=== PATIENT | female | born 1990 | race Caucasian/White ===

== ENCOUNTER 2022-10-13 15:52 | Emergency (ER) | payer OTHER, SELFPAY ==
--- NOTE | 2022-10-13 15:57 | ED.HA ---
HPI - Headache General Chief Complaint: Neck Pain/Injury Stated Complaint: head pain radiating down to neck Time Seen by Provider: 10/13/22 15:56 Source: patient Mode of arrival: ambulatory Limitations: no limitations History of Present Illness HPI Narrative: Yanely is a 32-year-old female patient presenting to clinic today with complaints of left lateral neck pain times 3-4 days. She denies any known injury however she woke up and her she was having pain-pain radiates into the shoulder at times. States the pain is sharp and stabbing and is worse with turning her head to the left. Rates the pain currently 8 out 10. She last took Motrin at 7 or 8:00 a.m. this morning. Patient also reports that she has had a sore throat for the last 1-2 days. She denies any fever or chills Related Data Home Medications Medication Instructions Recorded Confirmed cetirizine 10 mg capsule (Zyrtec) 10 mg PO DAILY 10/13/22 10/13/22 drospirenone 3 mg-ethinyl 1 tablet PO DAILY 10/13/22 10/13/22 estradiol 0.02 mg tablet fluticasone furoate 200 1 inh inhalation DAILY 10/13/22 10/13/22 mcg/actuation blister powder for inhalation (Arnuity Ellipta) fluticasone propionate 50 1 spray intranasal DAILY 10/13/22 10/13/22 mcg/actuation nasal spray,suspension Allergies Allergy/AdvReac Type Severity Reaction Status Date / Time No Known Allergies Allergy Verified 10/13/22 16:14 Review of Systems Review of Systems: Pertinent positives per HPI. Patient denies any fever, chills, rash, headache, visual changes, dizziness, cough, runny nose, shortness of breath, chest pain, palpitations, nausea, vomiting, diarrhea, constipation, abdominal pain, or any urinary issues. PMFSH Comments At the time of my signature, I reviewed and agree with the nursing past medical, surgical, social, and family history. There is no relevant family history pertinent to the patient complaint. Exam Narrative: General: Well-developed, well nourished, in no apparent distress Head: Normocephalic, atraumatic Eyes: Pupils equally round and reactive to light bilaterally, EOM intact, sclera and conjunctive clear, no discharge, lids normal Ears: TMs intact and clear, ear canals clear, no drainage, grossly hearing normal. Nose: Nares patent, no discharge, no inflammation, no sinus tenderness. Mouth: Oropharynx without lesions or masses, good dentition, MMM. Neck: Supple, trachea midline, no enlargement of anterior or posterior cervical nodes, no thyroid masses or goiter palpable. Tenderness to palpation over the left posterior lateral muscular strain, pain with turning her head to the left against resistance, some discomfort with hyperextension of the neck and flexion of the neck Cardio: Regular rate and rhythm, s1 and s2 normal, no murmur appreciated. Resp: Clear to auscultation bilaterally anteriorly and posteriorly, no rhonchi, rales, wheezing or rubs Course Course Emergency Course: Portions of this record may have been created with voice recognition software. Level of Care: Express Care Visit Vital Signs Vital signs: Vital Signs Temperature 36.2 C L 10/13/22 16:07 Pulse Rate 100 10/13/22 16:07 Respiratory Rate 18 10/13/22 16:07 Blood Pressure 134/79 10/13/22 16:07 Pulse Oximetry 100 10/13/22 16:07 Oxygen Delivery Room Air 10/13/22 16:07 Temperature 36.2 C L 10/13/22 16:07 Pulse Rate 100 10/13/22 16:07 Respiratory Rate 18 10/13/22 16:07 Blood Pressure 134/79 10/13/22 16:07 Pulse Oximetry 100 10/13/22 16:07 Oxygen Delivery Room Air 10/13/22 16:07 Vital signs reviewed MDM - Headache MDM Narrative Medical decision making narrative: At the time of visit patient is resting comfortably on exam table. I suspect the patient has a cervical strain of the posterior lateral musculature. Toradol 60 mg IM given in the clinic today for pain. Patient also reporting a sore throat so a strep screen was obtained. Will send
[2022-10-13 16:07] VITALS: BP 134/79; PULSE 100; RESP 18; TEMP 36.2; O2SAT 100
[2022-10-13] MEDS: KETOROLAC (*BKC) 60 MG/2 ML VIAL IM (16:20)
[2022-10-13 16:52] VITALS: BP 139/92; PULSE 91; RESP 18; TEMP 36.3; O2SAT 100
== END 2022-10-13 16:30 | disposition home or self-care (01) ==
PROVIDERS: Emergency Provider Nurse Practitioner Family
DX: S16.1XXA Strain of muscle, fascia and tendon at neck level, initial encounter (principal); X58.XXXA Exposure to other specified factors, initial encounter; J02.9 Acute pharyngitis, unspecified; J45.909 Unspecified asthma, uncomplicated
CPT/HCPCS: 87081; 87880; 96372; 99213; G0463; J1885

== ENCOUNTER 2022-10-15 08:13 | Emergency (ER) | payer OTHER, SELFPAY ==
[2022-10-15 08:28] VITALS: BP 121/82; PULSE 76; RESP 18; TEMP 36.4; O2SAT 98
--- NOTE | 2022-10-15 08:31 | ED.EYEPROB ---
HPI - Eye Problem General Chief complaint: Eye Problems Stated complaint: bilateral eye irritation Time Seen by Provider: 10/15/22 08:31 Source: patient Mode of arrival: ambulatory Limitations: no limitations History of Present Illness HPI Narrative: 32-year-old female presented for complaint of right eye crusted shut this morning. She also reports left eye with mild drainage. She states she feels that both eyes feel itchy and irritated, red and draining. Denies sick contacts. She has not applied anything to the eyes. She does not wear contacts. She has not been wearing makeup. Denies photophobia, vision changes, headache, nausea, vomiting, fevers or chills. chief complaint: eye pain Related Data Home Medications Medication Instructions Recorded Confirmed drospirenone 3 mg-ethinyl 1 tablet PO DAILY 10/13/22 10/15/22 estradiol 0.02 mg tablet fluticasone furoate 200 1 inh inhalation DAILY 10/13/22 10/15/22 mcg/actuation blister powder for inhalation (Arnuity Ellipta) fluticasone propionate 50 1 spray intranasal DAILY 10/13/22 10/15/22 mcg/actuation nasal spray,suspension Allergies Allergy/AdvReac Type Severity Reaction Status Date / Time No Known Allergies Allergy Verified 10/15/22 08:21 Review of Systems Review of Systems: CONSTITUTIONAL: Denies body aches, fever, chills EYES:per HPI ENT: Denies rhinorrhea, congestion, sore throat, or otalgia. CARDIOVASCULAR: Denies chest pain, palpitations RESPIRATORY: Denies cough or dyspnea. GASTROINTESTINAL: Denies abdominal pain, nausea, vomiting, or diarrhea. SKIN: Denies rash, itching, or wounds. MUSCULOSKELETAL: Denies back pain, joint pain, or myalgia. NEUROLOGIC: Denies headache, numbness, tingling, or weakness. All systems reviewed & are unremarkable except as noted in HPI and below PMFSH Comments At time of signature, I have reviewed and agree with nursing past medical, surgical, social and family history unless otherwise noted. Please see nursing chart for further information. There is no relevant family history pertinent to the presenting complaint Exam Narrative: GENERAL: Well-appearing HEAD: Normocephalic, atraumatic. EYES: Bilateral conjunctival injection, right > left, mild yellow drainage and crust noted to lashes; No eye lid swelling, PERRLA, EOMI. Lid eversion showed no FB. ENT: Mucous membranes pink and moist. No rhinorrhea. TMs normal bilaterally. Throat normal. Uvula midline. CHEST: Clear to auscultation. HEART: Regular rate and rhythm. ABDOMEN: Soft, nontender, nondistended SKIN: Warm, dry, no rash. Normal skin turgor. NEURO: No focal deficits. Alert and oriented x3 PSYCH: Normal affect. Course Course Emergency Course: Patient is aware of diagnosis, understands and agrees to treatment plan. Anticipatory guidance given. Patient agrees to follow-up as directed and is aware of reasons to seek care at the emergency department. Portions of this record may have been created with voice recognition software Level of Care: Express Care Visit Vital Signs Vital signs: Vital Signs Temperature 97.5 F L 10/15/22 08:28 Pulse Rate 76 10/15/22 08:28 Respiratory Rate 18 10/15/22 08:28 Blood Pressure 121/82 10/15/22 08:28 Pulse Oximetry 98 10/15/22 08:28 Oxygen Delivery Room Air 10/15/22 08:28 Temperature 97.5 F L 10/15/22 08:28 Pulse Rate 76 10/15/22 08:28 Respiratory Rate 18 10/15/22 08:28 Blood Pressure 121/82 10/15/22 08:28 Pulse Oximetry 98 10/15/22 08:28 Oxygen Delivery Room Air 10/15/22 08:28 MDM - Eye Problem MDM Narrative Medical decision making narrative: PE consistent with bacterial conjunctivitis. Advised supportive measures and signs/symptoms to go to the ER. Pt is appropriate for outpt treatment and f/u. Differential Diagnosis Differential diagnosis: Likely corneal abrasion, conjunctivitis, acute iritis and other Discharge Plan Discharge Clinical Im
== END 2022-10-15 08:40 | disposition home or self-care (01) ==
PROVIDERS: Emergency Provider Nurse Practitioner Family
DX: H10.9 Unspecified conjunctivitis (principal)
CPT/HCPCS: 99213; G0463

== ENCOUNTER 2024-08-11 08:06 | Emergency (ER) | payer OTHER, SELFPAY ==
--- NOTE | 2024-08-11 08:19 | ED_ITS ---
HPI - URI/Sore Throat General Chief Complaint: Upper Respiratory Infection Stated Complaint: RT PINK EYE / Sore throat Time Seen by Provider: 08/11/24 08:26 History of Present Illness HPI Narrative: 34-year-old female presented for complaint of sore throat, nasal congestion and fever of 99. for 3 days. Woke this morning with right eye crusted shut, endorses itching and burning. Denies vision changes, photophobia, headache, cough, nausea vomiting, diarrhea or lethargy. Related Data Home Medications ?Medication ?Instructions ?Recorded ?Confirmed ?Last Taken ?Type drospirenone 3 mg-ethinyl 1 tablet PO DAILY 10/13/22 10/15/22 Unknown History estradiol 0.02 mg tablet fluticasone furoate 200 1 inh inhalation DAILY 10/13/22 10/15/22 Unknown History mcg/actuation blister powder for inhalation (Arnuity Ellipta) fluticasone propionate 50 1 spray intranasal DAILY 10/13/22 10/15/22 Unknown History mcg/actuation nasal spray,suspension dextroamphetamine-amphetamine ER PO 08/11/24 Unknown History 20 mg 24hr capsule,extend release hydroxyzine HCl 25 mg tablet mg 08/11/24 Unknown History sertraline 25 mg tablet mg 08/11/24 Unknown History Allergies Allergy/AdvReac Type Severity Reaction Status Date / Time No Known Allergies Allergy Verified 08/11/24 08:10 Review of Systems Review of Systems: ROS per HPI Exam Narrative: GENERAL: well-appearing, no acute distress. EYES: Right conjunctival injection purulent drainage. PERRLA, EOM. no FB ENT: Mucous membranes moist. TMs pearly bhatia with normal light reflex bilaterally; no tragal tenderness. Oropharynx erythematous without lesions. Tonsils not enlarged and without exudate. No drooling, no hoarseness, no trismus, uvula midline. No tripod positioning, hot potato voice, or soft palate swelling. NECK: Supple. No lymphadenopathy CHEST: Clear to auscultation, breath sounds equal. No respiratory distress, speaks in full sentences. HEART: Regular rate and rhythm. No murmur heard. SKIN: Warm, dry, no rash. NEURO: Alert and oriented x3. Course Course Emergency Course: Patient is aware of diagnosis, understands and agrees to treatment plan. Anticipatory guidance given. Patient agrees to follow-up as directed and is aware of reasons to seek care at the emergency department. Portions of this record may have been created with voice recognition software Level of Care: Express Care Visit Vital Signs Vital signs: Vital Signs Temperature 97.3 F L 08/11/24 08:20 Pulse Rate 72 08/11/24 08:20 Respiratory Rate 16 08/11/24 08:20 Blood Pressure 124/82 08/11/24 08:20 Pulse Oximetry 100 08/11/24 08:20 Oxygen Delivery Room Air 08/11/24 08:20 Temperature 97.3 F L 08/11/24 08:20 Pulse Rate 72 08/11/24 08:20 Respiratory Rate 16 08/11/24 08:20 Blood Pressure 124/82 08/11/24 08:20 Pulse Oximetry 100 08/11/24 08:20 Oxygen Delivery Room Air 08/11/24 08:20 MDM - URI/Sore Throat MDM Narrative Medical decision making narrative: neg strep result reviewed with pt. Treatment for conjunctivitis reviewed with pt. Advise supportive treatments. Patient is appropriate for outpatient treatment and follow-up. Differential Diagnosis Differential diagnosis: Likely upper respiratory infection, viral infection and pharyngitis Lab Data Labs: Lab Results 08/11/24 Range/Units 08:26 POC Grp A Strep Screen Negative (Negative) Discharge Plan Discharge Clinical Impression: Conjunctivitis, Upper respiratory infection Patient Disposition: Home, Self-Care Condition: Stable Instructions: Antibiotic Form, Upper Respiratory Infection (ED), Conjunctivitis (ED) Additional Instructions: eye: Avoid touching or rubbing your eye. Use over the counter lubricating eye drops as needed for irritation Use a warm or cool washcloth on your eye for comfort Use eyedrops as directed - you are contagious for 24 hours after starting the antibiotic Practice good handwashing and hygiene to prevent spread of infection Do not wear contact lenses. Use a new pair after the infection is resolved. Use new makeup, lashes etc. You may take Tylenol or ibuprofen for pain Follow-up with PCP or nuclear criticality safety engineer if condition is not improving in 2-3days. Go to the emergency room if you have severe pain or pressure behind your eye, difficulty seeing, or other severe symptoms Upper respiratory: Flu and Covid negative Rapid strep swab was negative today You will be notified in a few days if the culture comes back positive for strep, and appropriate antibiotics will be called in at that time. if symptoms are due to a viral illness, it is not treated with antibiotics. Viral symptoms can be present for up to 10-14 days. Recommend Flonase spray and Zyrtec for sinus congestion Cough syrup may cause drowsiness; avoid driving or take it at night time. Tylenol every 8 hours as needed for pain/fever Soft foods, cool liquids, warm tea. Gargle with warm saltwater twice a day. Chloraseptic spray and throat lozenges. Rest and stay hydrated. --Follow up with your PCP --Go to the ER immediately if you cannot swallow your saliva, trouble breathing/wheezing, throat swelling, pain is persistent and severe Patient Language: Scottish Prescriptions: New polymyxin B sulf-trimethoprim 10,000 unit- 1 mg/mL drops 1 drp RIGHT EYE Q3H 7 Days Qty: 10 0RF Rx Instructions: while awake; do not exceed 6 doses in 24 hours No Action fluticasone propionate [Flonase] 50 mcg/actuation [place],Suspension 1 spray INTRANASAL DAILY drospirenone-ethinyl estradiol 3-0.02 mg tablet 1 tablet PO DAILY Arnuity Ellipta 200 mcg/actuation blister with device 1 inh INHALATION DAILY dextroamphetamine-amphetamine 20 mg capsule,extended release 24hr PO sertraline 25 mg tablet hydroxyzine HCl 25 mg tablet Follow-up/Referrals: PHYSICIAN,IT PROGRAM AUDITOR [Primary Care Provider] - Time of Disposition: 08:58
[2024-08-11 08:20] VITALS: BP 124/82; PULSE 72; RESP 16; TEMP 36.3; O2SAT 100
[2024-08-11 08:27] LABS: EDSTREPNEGPOS1 Negative (Negative)
[2024-08-11 09:00] LABS: EDCOVIDSCREEN Negative (Negative); EDINFLUASCREEN Negative (Negative); EDINFLUBSCREEN Negative (Negative)
== END 2024-08-11 09:00 | disposition home or self-care (01) ==
PROVIDERS: Emergency Provider Nurse Practitioner Family
DX: H10.9 Unspecified conjunctivitis (principal); J02.9 Acute pharyngitis, unspecified; Z20.822 Contact with and (suspected) exposure to COVID-19
CPT/HCPCS: 87081; 87426; 87804; 87880; 99213; G0463